=== PATIENT | female | born 1985 | race Two or more races ===

== ENCOUNTER 2023-12-23 03:26 | Outpatient (CLI) | payer OTHER ==
[~2023-12-23] VITALS: Ht 157.5 cm; Wt 63.0 kg
[2023-12-23] VITALS (8 sets, daily range): BP systolic 91–112; BP diastolic 50–63; O2SAT 97
[2023-12-23] MEDS ORDERED: ONDANSETRON HCL 2 MG/ML VIAL IV ONE (03:45)
[2023-12-23] MEDS ORDERED: RINGERS SOLUTION,LACTATED 1,000 ML IV SCH (03:45)
[2023-12-23] MEDS ORDERED: MORPHINE SULFATE 4 MG/ML CARTRIDGE IV PRN ×2 (03:45→09:45)
[2023-12-23] MEDS ORDERED: IRON240 MG PO (04:13)
[2023-12-23] MEDS ORDERED: PRENATAL VITAM1 EAC5 PO (04:15)
[2023-12-23 04:45] LABS: PH,URINE 6.5 (5.0-8.0); URINE APPEARANCE Clear; URINE BILIRRUBIN Negative (NEGATIVE); URINE BLOOD Negative; URINE COLOR Yellow; URINE GLUCOSE Negative (NEGATIVE); URINE KETONE Negative (NEGATIVE); URINE LEUKOCYTE Negative; URINE NITRATE Negative; URINE PROTEIN Negative (NEGATIVE); URINE UROBILINOGEN 0.2 E.U./dl
[2023-12-23 04:46] LABS: URINE BACTERIA 130.9 uL (0.0-1933); URINE EPITHELIAL CELLS 6.3 uL (0.0-38.8)
[2023-12-23 04:48] LABS: URINE CAST 0.15 uL (0.0-1.40); URINE RBC 0.7 uL (0.0-20.8)
[2023-12-23 04:52] LABS: HEMATOCRIT 25.2 % (36.0-45.00); HEMOGLOBIN 9.1 g/dL (12.0-15.00); MEAN CELL VOLUME 94.2 fL (80.00-100.00); MEAN CORPUSCULAR HEMOGLOBIN 33.9 pg (27.00-32.0); PLATELET COUNT 172 K/uL (150-450); RED BLOOD COUNT 2.67 M/uL (4.00-6.00); RED CELL DISTRIBUTION WIDTH 13.3 % (11.5-14.5)
[2023-12-23 04:56] LABS: PARTIAL THROMBOPLASTIN TIME 23.9 SECONDS (22.0-34.0); PROTHROMBIN TIME 10.9 SECONDS (9.0-11.5)
[2023-12-23 05:05] LABS: ALBUMIN 2.9 gm/dL (3.4-5.0); BILIRUBIN TOTAL 0.24 mg/dL (0.3-1.2); CALCIUM 10.1 mg/dL (8.5-10.1); CREATININE SERUM 0.84 mg/dL (0.55-1.02); GFR 75.88; POTASSIUM 3.73 mEq/L (3.5-5.1); TOTAL PROTEIN 5.9 gm/dL (6.4-8.2)
[2023-12-23] MEDS ORDERED: CEFAZOLIN SODIUM 2,000 MG in 0.9 % SODIUM CHLORIDE 100 ML IV SCH (09:50)
[2023-12-23] MEDS ORDERED: ONDANSETRON HCL 2 MG/ML VIAL IV PRN (14:00)
[2023-12-23] MEDS ORDERED: ACETAMINOPHEN 500 MG GEL..CAP PO PRN (21:00)
[2023-12-24 03:32] VITALS: BP 93/60
[2023-12-24 06:21] VITALS: BP 98/48; O2SAT 99
== END 2023-12-24 10:14 | disposition home or self-care (01) ==
LOC: LDR → OBS/DEL 03:26 → LDR 03:26 → OBS/DEL 12-24 10:14 → LDR 12-24 10:14 → EDSTATUS 01-11 11:50
PROVIDERS: ATTEND Obstetrics & Gynecology
DX: O26.892 Other specified pregnancy related conditions, second trimester (principal); O99.891 Other specified diseases and conditions complicating pregnancy; N13.30 Unspecified hydronephrosis; Z3A.27 27 weeks gestation of pregnancy

== ENCOUNTER 2024-03-14 13:45 | Inpatient (IN) | payer OTHER ==
[~2024-03-14] VITALS: Ht 157.5 cm; Wt 68.0 kg
[~2024-03-14 13:45] MED LIST: IRON240 MG PO; PRENATAL VITAM1 EAC5 PO
[2024-03-22 15:55] VITALS: BP 728/69
[2024-03-22] MEDS ORDERED: MISOPROSTOL 25 MCG TABLET ONE (16:06)
[2024-03-22 16:48] LABS: HEMATOCRIT 28.2 % (36.0-45.00); HEMOGLOBIN 10.2 g/dL (12.0-15.00); MEAN CELL VOLUME 95.6 fL (80.00-100.00); MEAN CORPUSCULAR HEMOGLOBIN 34.6 pg (27.00-32.0); MEAN CORPUSCULAR HGB CONC 36.2 g/dl (32.0-36.0); PLATELET COUNT 149 K/uL (150-450); RED BLOOD COUNT 2.94 M/uL (4.00-6.00); RED CELL DISTRIBUTION WIDTH 14.3 % (11.5-14.5)
[2024-03-22] MEDS ORDERED: AMPICILLIN SODIUM 2,000 MG VIAL ONE (17:00)
[2024-03-22 17:04] LABS: INR 1.01; PARTIAL THROMBOPLASTIN TIME 24.3 SECONDS (22.0-34.0); PH,URINE 6.5 (5.0-8.0); URINE APPEARANCE Clear; URINE BILIRRUBIN Negative (NEGATIVE); URINE BLOOD Negative; URINE COLOR Yellow; URINE GLUCOSE Negative (NEGATIVE); URINE KETONE Negative (NEGATIVE); URINE LEUKOCYTE Trace; URINE NITRATE Negative; URINE PROTEIN Negative (NEGATIVE); URINE UROBILINOGEN 0.2 E.U./dl
[2024-03-22 17:07] LABS: URINE BACTERIA 1451.5 uL (0.0-1933); URINE EPITHELIAL CELLS 28.6 uL (0.0-38.8); URINE RBC 6.4 uL (0.0-20.8); URINE WBC 62.3 uL (0.0-23.2)
[2024-03-22] MEDS ORDERED: ZOLOFT25 MG PO (17:07)
[2024-03-22 17:09] LABS: URINE CAST 0.58 uL (0.0-1.40)
[2024-03-22 17:15] LABS: ALBUMIN 2.7 gm/dL (3.4-5.0); BILIRUBIN TOTAL 0.43 mg/dL (0.3-1.2); CALCIUM 9.9 mg/dL (8.5-10.1); CREATININE SERUM 0.65 mg/dL (0.55-1.02); GFR 102.01; GLOBULINA 3.4 G/DL (2.4-3.5); POTASSIUM 3.69 mEq/L (3.5-5.1); TOTAL PROTEIN 6.1 gm/dL (6.4-8.2)
[2024-03-22] MEDS ORDERED: RINGERS SOLUTION,LACTATED 1,000 ML IV SCH (17:15)
[2024-03-22] MEDS ORDERED: AMPICILLIN SODIUM 2,000 MG VIAL IV ONE (17:15)
[2024-03-22] MEDS ORDERED: MORPHINE SULFATE 4 MG/ML CARTRIDGE IV PRN (17:15)
[2024-03-22] MEDS ORDERED: MISOPROSTOL 25 MCG TABLET VAG ONE (17:15)
[2024-03-22] MEDS ORDERED: AMPICILLIN SODIUM 1,000 MG VIAL IV SCH (21:00)
[2024-03-22 23:28] VITALS: BP 123/64
[2024-03-23] VITALS (11 sets, daily range): BP systolic 109–146; BP diastolic 67–76
[2024-03-23] MEDS ORDERED: CHLORHEXIDINE GLUCONATE 120 ML BOTTLE TOP ONE ×2 (04:22→07:45)
[2024-03-23] MEDS ORDERED: LIDOCAINE HCL 1% 10ML VIAL ONE (04:22)
[2024-03-23] MEDS ORDERED: ERYTHROMYCIN BASE OPHT 1GM EACH TUBE OP ONE ×2 (04:22→07:45)
[2024-03-23] MEDS ORDERED: OXYTOCIN 20 UNITS/1000ML RL PIGGYBAG IV ONE ×2 (04:22→06:46)
[2024-03-23] MEDS ORDERED: OXYTOCIN 10 UNITS/ML VIAL ONE (05:04)
[2024-03-23] MEDS ORDERED: METHYLERGONOVINE MALEATE 0.2 MG/ML AMPUL ONE (05:09)
[2024-03-23] MEDS ORDERED: CARBOPROST TROMETHAMINE 250 MCG/ML AMPUL IM ONE ×4 (05:13→07:45)
[2024-03-23] MEDS ORDERED: OxyCODONE HCL/APAP UD (PERCOCET) PO PRN (07:15)
[2024-03-23] MEDS ORDERED: IBUprofen 400 MG TABLET PO PRN (07:15)
[2024-03-23] MEDS ORDERED: OXYTOCIN 1,000 ML IV SCH (07:45)
[2024-03-23] MEDS ORDERED: OXYTOCIN 10 UNITS/ML VIAL IV ONE (07:45)
[2024-03-23] MEDS ORDERED: LIDOCAINE HCL 1% 10ML VIAL IJ ONE (07:45)
[2024-03-23] MEDS ORDERED: METHYLERGONOVINE MALEATE 0.2 MG TABLET PO SCH (08:00)
[2024-03-23 12:29] LABS: HEMOGLOBIN 10.1 g/dL (12.0-15.00); MEAN CELL VOLUME 94.6 fL (80.00-100.00); MEAN CORPUSCULAR HEMOGLOBIN 34.1 pg (27.00-32.0); PLATELET COUNT 133 K/uL (150-450); RED BLOOD COUNT 2.96 M/uL (4.00-6.00); RED CELL DISTRIBUTION WIDTH 14.1 % (11.5-14.5)
[2024-03-24 08:00] VITALS: BP 127/57
[2024-03-24 16:54] VITALS: BP 114/63
== END 2024-03-24 16:58 | disposition home or self-care (01) | DRG 807 ==
LOC: LDR 03-22 14:33 → OB/GYN 03-23 10:49 → LDR 03-23 13:45 → OB/GYN 03-24 16:58
PROVIDERS: Obstetrics & Gynecology; ADMIT Obstetrics & Gynecology Maternal & Fetal Medicine; ATTEND Obstetrics & Gynecology Maternal & Fetal Medicine
PROC: 10E0XZZ Delivery of Products of Conception, External Approach (ICD-10-PCS; principal; 2024-03-22)
PROC: 0KQM0ZZ Repair Perineum Muscle, Open Approach (ICD-10-PCS; 2024-03-22)
PROC: 4A1HXCZ Monitoring of Products of Conception, Cardiac Rate, External Approach (ICD-10-PCS; 2024-03-22)
DX: O70.1 Second degree perineal laceration during delivery (principal); Z37.0 Single live birth; O99.824 Streptococcus B carrier state complicating childbirth; Z3A.40 40 weeks gestation of pregnancy

== ENCOUNTER 2024-03-18 12:24 | Outpatient (CLI) | payer OTHER | END 2024-03-18 13:12 | disposition home or self-care (01) | LOC: NST 12:24 | PROVIDERS: ATTEND Obstetrics & Gynecology | DX: Z34.83 Encounter for supervision of other normal pregnancy, third trimester (principal) ==